=== PATIENT | male | born 2000 | race Caucasian/White ===

== ENCOUNTER 2021-07-21 14:37 | Emergency (ER) | payer SELFPAY ==
[2021-07-21 14:40] VITALS: PULSE 92; RESP 16; O2SAT 98
--- NOTE | 2021-07-21 14:57 | ED.EYEPROB ---
HPI - Eye Problem General Chief complaint: Eye Problems Stated complaint: left eye swollen Time Seen by Provider: 07/21/21 14:47 History of Present Illness HPI Narrative: 21-year-old male presents to the emergency room with the left upper eyelid swelling 1 day. Patient states he noticed a stye in his left upper eye yesterday and began draining last night. Has been applying heat to affected area with no relief. Denies vision changes/loss, blurriness, headaches, nausea vomiting. Denies injury/trauma. Related Data Allergies Allergy/AdvReac Type Severity Reaction Status Date / Time No Known Allergies Allergy Verified 02/12/18 22:47 Review of Systems Review of Systems: CONSTITUTIONAL: Denies fever, chills, or sweats. EYES: Per HPI: Upper eyelid swelling. ENT: Denies rhinorrhea, congestion, sore throat, or otalgia. CARDIOVASCULAR: Denies chest pain, palpitations, or edema. RESPIRATORY: Denies cough or dyspnea. GASTROINTESTINAL: Denies abdominal pain, nausea, vomiting, or diarrhea. GENITOURINARY: Denies dysuria or hematuria. SKIN: Denies rash or itching. MUSCULOSKELETAL: Denies back pain, joint pain, or myalgia. NEUROLOGIC: Denies headache, numbness, dizziness, or weakness. PSYCHIATRIC: Denies anxiety or depression. Exam Narrative: GENERAL: Well-appearing, well-nourished, and in no acute distress. HEAD: Normocephalic, atraumatic. EYES: PERRLA and EOMI. left upper eyelid swelling. No identified stye. No erythema ENT: Nares clear, no rhinorrhea or epistaxis. Mucous membranes moist. Oropharynx without tonsillar hypertrophy exudate or other lesions. Bilateral TMs pearly matos nonbulging NECK: Supple. No adenopathy or masses. No carotid bruits or JVD CHEST: Clear to auscultation. No respiratory distress. No wheezes rales or rhonchi HEART: Regular rate and rhythm. No murmur heard. Normal peripheral pulses. ABDOMEN: Soft, nontender, nondistended, normal active bowel sounds. EXTREMITIES: Normal range of motion. No edema. SKIN: Warm, dry, no rash. NEURO: No focal deficits. Alert and oriented x3. PSYCH: Normal mood and affect. Course Vital Signs Vital signs: Vital Signs Pulse Rate 92 07/21/21 14:40 Respiratory Rate 16 07/21/21 14:40 Pulse Oximetry 98 07/21/21 14:40 Pulse Rate 92 07/21/21 14:40 Respiratory Rate 16 07/21/21 14:40 Pulse Oximetry 98 07/21/21 14:40 Discharge Plan Discharge Clinical Impression: External hordeolum Qualifiers: Laterality: left Eyelid: upper Qualified Code(s): H00.014 - Hordeolum externum left upper eyelid Patient Disposition: Home, Self-Care Condition: Stable Instructions: Antibiotic Form Prescriptions: New erythromycin 5 mg/gram (0.5 %) ointment 1 applic LEFT EYE DAILY Qty: 1 RF: 0 Follow-up/Referrals: PHYSICIAN,APPELLATE CONFEREE [Primary Care Provider] - Stand Alone Forms: Work/School Release IP Time of Disposition: 15:00
== END 2021-07-21 16:03 | disposition home or self-care (01) ==
LOC: ANHED 15:24
PROVIDERS: Emergency Provider Nurse Practitioner Family
DX: H00.014 Hordeolum externum left upper eyelid (principal)
CPT/HCPCS: 99283

== ENCOUNTER 2023-10-16 15:23 | Emergency (ER) | payer OTHER, SELFPAY ==
[2023-10-16 15:35] VITALS: BP 148/77; PULSE 86; RESP 18; TEMP 36.8; O2SAT 96
--- NOTE | 2023-10-16 17:33 | PC.NURSE ---
patient left from room without being seen.
== END 2023-10-16 18:45 | disposition left against medical advice (07) ==
PROVIDERS: Emergency Provider Student in an Organized Health Care Education/Training Program
DX: S81.811A Laceration without foreign body, right lower leg, initial encounter (principal); W12.XXXA Fall on and from scaffolding, initial encounter
CPT/HCPCS: 99199

== ENCOUNTER 2024-09-28 11:06 | Emergency (ER) | payer SELFPAY ==
--- NOTE | ~2024-09-28 | CT_ITS ---
EXAMINATION: CT abdomen pelvis w con DATE: 09/28/2024 12:45 INDICATION: Abdominal pain and vomiting TECHNIQUE: Computed tomography (CT) of the abdomen and pelvis was performed with 100 mL Omnipaque-350 intravenous contrast. Automated exposure control and iterative reconstruction technique were employe d. The dose-length product was 587.79 mGy-cm. COMPARISON: None FINDINGS: Lung bases are clear. Heart size is normal. No pericardial or pleural effusion. Diffuse hepatic steat osis with focal sparing along the gallbladder fossa the gallbladder, spleen, pancreas, bilateral adre nal glands and kidneys are normal. Bowels including the appendix are normal. Bladder is normal. No fr ee intraperitoneal gas or fluid. No pathologically enlarged abdominal or pelvic lymphadenopathy. Bone s are unremarkable. IMPRESSION: 1. Diffuse hepatic steatosis. No acute intra-abdominal/pelvic process. Reviewed, dictated and finalized at location A.
[2024-09-28 11:10] VITALS: BP 146/94; PULSE 93; RESP 17; TEMP 36.6; O2SAT 97
[2024-09-28 11:55] LABS: Basophils Percent Auto 0.4 % (0.2-1.2); Eosinophils Absolute Auto 0.1 K/mm3 (0-0.3); Hematocrit 49.2 % (42.0-52.0); Hemoglobin 16.7 g/dL (14.0-18.0); Immature Granulocyte Absolute 0.06 K/mm3 (0.00-0.031); Immature Granulocyte Percent A 0.9 % (0-0.5); Lymphocytes Percent Auto 26.7 % (18.3-44.2); Mean Corpuscular HGB Conc 33.9 g/dl (32-36); Mean Corpuscular Hemoglobin 28.7 pg (26-34); Mean Corpuscular Volume 84.7 fl (80-100); Mean Platelet Volume 9.2 fl (7.4-10.4); Monocytes Absolute Auto 0.6 K/mm3 (0.1-0.6); Monocytes Percent Auto 9.3 % (2.6-8.5); Neutrophils Absolute Auto 4.2 K/mm3 (1.3-6.7); Neutrophils Percent Auto 61.7 % (45.5-73.1); Platelet Count Result 227 k/mm3 (150-375); Red Blood Count 5.81 M/mm3 (4.6-6.20); Red Cell Distribution Width 13.1 % (11.5-14.5); White Blood Count 6.8 K/mm3 (4.5-10.0)
[2024-09-28 12:00] LABS: Add Urine Microscopic? YES; Appearance Urine Clear (Clear); Bacteria Urine None Seen /hpf; Bilirubin Urine Negative (Negative); Blood Urine Negative (Negative); Color Urine Yellow (Yellow); Glucose Urine UA Negative (Negative); Ketones Urine Trace mg/dL (Negative); Leukocyte Esterase Ur Negative LEU/UL (Negative); Nitrate Urine Negative (Negative); Non Pathogenic Casts 0-2; Protein Urine Trace mg/dL (Negative); RBC Urine 0-2 /hpf (0-2); Specific Grav Ur 1.022 (1.001-1.035); Squamous Epithelial Cell Urine None Seen /hpf (Few); Urobilinogen Urine 0.2 mg/dL (<2.0); WBC Urine 0-5 /hpf (0-3); pH Urine 6.5 (5.0-9.0)
[2024-09-28 12:04] LABS: Alanine Aminotransferase 118 U/L (6-50); Albumin Level 4.3 g/dL (3.5-5.1); Alkaline Phosphatase 138 U/L (38-126); Anion Gap 10 mmol/L (4-12); Aspartate Amino Transferase 82 U/L (17-59); Bilirubin,Total 0.5 mg/dL (0.2-1.3); Blood Urea Nitrogen 8 mg/dL (9-20); Carbon Dioxide 25 mmol/L (22-30); Chloride 104 mmol/L (98-107); Estimated CRCL calculation 155 ml/min; Estimated Glomerular Filt Rate > 60; Glucose 109 mg/dL (65-110); Lipase 45 U/L (23-300); Potassium 3.7 mmol/L (3.4-5.0); Sodium 139 mmol/L (137-145)
[2024-09-28] MEDS: FAMOTIDINE 20 MG/2 ML VIAL IV PUSH (12:13)
[2024-09-28] MEDS: SODIUM CHLORIDE 0.9% IV 1,000 ML 999 ML IV CONT (12:13)
[2024-09-28] MEDS: ONDANSETRON INJ 4 MG/2 ML VIAL IV PUSH (12:13)
[2024-09-28] MEDS: KETOROLAC 15 MG/ML VIAL (*BKC) IV PUSH (12:18)
--- NOTE | 2024-09-28 12:27 | ED_ITS ---
HPI - Abdominal Pain General Chief Complaint: Abdominal Pain Stated Complaint: Abd pain-vomiting Time Seen by Provider: 09/28/24 11:53 Source: patient Mode of arrival: ambulatory Limitations: no limitations History of Present Illness HPI narrative: This is a 24-year-old male that presents to the emergency department for epigastric abdominal pain. Ongoing over the last couple of days. Reports associated nausea and vomiting. He was seen at another hospital for this earlier this week and discharge. Reports his pain has continued which prompted him to be seen again. Denies fevers. Related Data Allergies Allergy/AdvReac Type Severity Reaction Status Date / Time No Known Allergies Allergy Verified 09/28/24 11:06 Review of Systems 2 Review of Systems: CONSTITUTIONAL: Denies fever GASTROINTESTINAL: Reports abdominal pain, nausea, vomiting All systems reviewed & are unremarkable except as noted in HPI and below PMFSH Past Medical History Medical History (Updated 09/28/24 @ 13:22 by Glenys Curran PA-C) No active medical problems Social History Social History (Updated 09/28/24 @ 12:28 by Glenys Curran PA-C) Substance use: current Substance use type: marijuana Exam 2 Narrative: GENERAL: Well-appearing, well-nourished, and in no acute distress. HEAD: Normocephalic, atraumatic. EYES: EOMI. CHEST: Clear to auscultation. No respiratory distress. No wheezes rales or rhonchi HEART: Regular rate and rhythm. No murmur heard. Normal peripheral pulses. ABDOMEN: Soft, nondistended, normal active bowel sounds. Mild tenderness to palpation in the epigastrium and right upper quadrant, without guarding EXTREMITIES: Normal range of motion. No edema. SKIN: Warm, dry, no rash. NEURO: No focal deficits. Alert and oriented x3. PSYCH: Normal mood and affect Course Course Emergency Course: Patient updated on his workup and agrees with plan care Vital Signs Vital signs: Vital Signs Temperature 97.8 F 09/28/24 11:10 Pulse Rate 93 09/28/24 11:10 Respiratory Rate 17 09/28/24 11:10 Blood Pressure 146/94 H 09/28/24 11:10 Pulse Oximetry 97 09/28/24 11:10 Oxygen Delivery Room Air 09/28/24 11:10 Temperature 97.8 F 09/28/24 11:10 Pulse Rate 93 09/28/24 11:10 Respiratory Rate 17 09/28/24 11:10 Blood Pressure 146/94 H 09/28/24 11:10 Pulse Oximetry 97 09/28/24 11:10 Oxygen Delivery Room Air 09/28/24 11:10 MDM - Abdominal Pain MDM Narrative Medical decision making narrative: Patient presents the emergency department for epigastric abdominal pain. He is afebrile and nontoxic appearing. Cbc without leukocytosis. Metabolic panel with transaminitis. Lipase is normal. Urine without evidence of infection. CT abdomen pelvis shows hepatic steatosis, no acute findings. Patient updated on his workup and agrees with plan of care. He is to follow up with primary provider. He was given warnings to return to the ER Differential Diagnosis Differential diagnosis: Likely gastroenteritis, pancreatitis and other (GERD, peptic ulcer disease, biliary colic) Lab Data Attestation: I reviewed the patient's lab results. 09/28/24 11:50 09/28/24 11:48 Labs: Lab Results 09/28/24 09/28/24 Range/Units 11:48 11:50 WBC 6.8 (4.5-10.0) K/mm3 RBC 5.81 (4.6-6.20) M/mm3 Hgb 16.7 (14.0-18.0) g/dL Hct 49.2 (42.0-52.0) % MCV 84.7 (80-100) fl MCH 28.7 (26-34) pg MCHC 33.9 (32-36) g/dl RDW 13.1 (11.5-14.5) % Plt Count 227 (150-375) k/mm3 MPV 9.2 (7.4-10.4) fl Immature Gran % (Auto) 0.9 H (0-0.5) % Neut % (Auto) 61.7 (45.5-73.1) % Lymph % (Auto) 26.7 (18.3-44.2) % Jackson % (Auto) 9.3 H (2.6-8.5) % Eos % (Auto) 1.0 (0-4.4) % Baso % (Auto) 0.4 (0.2-1.2) % Lymph # (Auto) 1.80 (0.9-3.2) K/mm3 [place] # (Auto) 0.6 (0.1-0.6) K/mm3 Eos # (Auto) 0.1 (0-0.3) K/mm3 Baso # (Auto) 0.0 (0.0-0.1) K/mm3 Abs Immat Gran (auto) 0.06 H (0.00-0.031) K/mm3 Absolute Neuts (auto) 4.2 (1.3-6.7) K/mm3 Absolute Nucleated RBC 0.000 (0.0-0.012) K/mm3 Nucleated RBC % 0.0 (0.0-0.2) % Sodium 139 (137-145) mmol/L Potassium 3.7 (3.4-5.0) mmol/L Chloride 104 (98-107) mmol/L Carbon Dioxide 25 (22-30) mmol/L Anion Gap 10 (4-12) mmol/L BUN 8 L (9-20) mg/dL Creatinine 0.73 (0.7-1.3) mg/dL Estim Creat Clear Calc 155 ml/min Estimated GFR > 60 (59 - ) Glucose 109 (65-110) mg/dL Calcium 9.0 (8.4-10.2) mg/dL Total Bilirubin 0.5 (0.2-1.3) mg/dL AST 82 H (17-59) U/L ALT 118 H (6-50) U/L Alkaline Phosphatase 138 H (38-126) U/L Total Protein 8.0 (6.3-8.2) g/dL Albumin 4.3 (3.5-5.1) g/dL Lipase 45 (23-300) U/L Urine Color Yellow (Yellow) Urine Appearance Clear (Clear) Urine pH 6.5 (5.0-9.0) Ur Specific [place] 1.022 (1.001-1.035) Urine Protein Trace (Negative) mg/dL Urine Glucose (UA) Negative (Negative) mg/dL Urine Ketones Trace H (Negative) mg/dL Ur Blood (Man) Negative (Negative) Urine Nitrate Negative (Negative) Urine Bilirubin Negative (Negative) Urine Urobilinogen 0.2 (<2.0) mg/dL Leukocyte Esterase Rfl Negative (Negative) LINDA/UL Urine RBC 0-2 (0-2) /hpf Urine WBC 0-5 (0-3) /hpf Ur Squamous Epith Cells None seen (Few) /hpf Urine Bacteria None seen /hpf Urine Casts 0-2 Imaging Data Radiologist's impression: ITS Impressions Abdomen/Pelvis CT 09/28/24 12:51 IMPRESSION: 1. Diffuse hepatic steatosis. No acute intra-abdominal/pelvic process. Critical Care Time Critical Care Time Critical Care Time: No Discharge Plan Discharge Clinical Impression: Epigastric pain Patient Disposition: Home Condition: Stable Instructions: GERD (Gastroesophageal Reflux Disease) (ED), Non-Alcoholic Fatty Liver Disease (ED), Epigastric Pain (ED) Additional Instructions: Return to the ER if you experience fever, abdominal pain with nausea and vomiting, you are unable to keep down liquids or solids, or any other symptoms that are concerning to you Small, frequent meals. [place] diet. Remain well hydrated. Take Protonix as prescribed Follow up with primary care doctor Patient Language: [place] Prescriptions: New pantoprazole [Protonix] 20 mg tablet,delayed release (DR/EC) 20 mg PO HS 28 Days Qty: 28 0RF No Action erythromycin 5 mg/gram (0.5 %) ointment 1 applic LEFT EYE DAILY Qty: 1 0RF Follow-up/Referrals: Aroldo Macario MD [Physician] - UNKNOWN,DOCTOR [Primary Care Provider] -
== END 2024-09-28 13:37 | disposition home or self-care (01) ==
PROVIDERS: Emergency Provider Physician Assistant
DX: R10.13 Epigastric pain (principal)
CPT/HCPCS: 36415; 74177; 80053; 81001; 83690; 85025; 96361; 96374; 96375; 99284; J1885; J2405; J7030; Q9967